=== PATIENT | female | born 1990 | race Caucasian/White ===

== ENCOUNTER 2020-08-03 18:02 | Emergency (ER) | payer OTHER | END 2020-08-04 17:30 | disposition other institution (70) | LOC: ER1 18:02 | DX: R53.1 Weakness (principal); R20.0 Anesthesia of skin; M51.27 Other intervertebral disc displacement, lumbosacral region; M48.07 Spinal stenosis, lumbosacral region; I10 Essential (primary) hypertension; F17.210 Nicotine dependence, cigarettes, uncomplicated | CPT/HCPCS: 72131; 96374; 96375; 96376; 99284; J2270; J2360; J2405 ==